=== PATIENT | female | born 1945 | race Caucasian/White ===

== ENCOUNTER 2020-10-27 17:09 | Inpatient (IN) | payer MEDICARE, BC ==
[2020-10-27] VITALS (52 sets, daily range): BP systolic 174; BP diastolic 87; PULSE 108; O2SAT 97–100
[~2020-10-27] VITALS: Ht 167.6 cm; Wt 93.4 kg
[2020-10-27 17:37] LABS: BASO # 0.1 (0.0-0.2); BASO % 0.7 % (0.0-2.0); EOS # 0.2 (0.0-0.7); EOS % 2.4 % (0-4.0); GRAN # 7.5 (1.4-6.5); GRAN % 73.9 % (42.2-75.2); HEMATOCRIT 44.3 % (37.0-47.0); HEMOGLOBIN 14.2 g/dl (12.5-16.0); LYMPH # 1.4 (1.2-3.4); LYMPH % 14.2 % (20.0-51.0); MEAN CELL VOLUME 96 fl (80.0-100.0); MEAN CORPUSCULAR HEMOGLOBIN 31 pg (27.0-31.0); MEAN CORPUSCULAR HGB CONC 32 g/dl (33.0-37.0); MEAN PLATELET VOLUME 9.3 fl (7.4-10.4); MONO # 0.8 (0.1-0.6); MONO % 8.2 % (1.7-9.3); PLATELET COUNT 387 K/mm3 (130-400); RED BLOOD COUNT 4.62 M/mm3 (4.10-5.30); REDCELL DISTRIBUTION WIDTH-CV 13.3 % (11.5-14.5)
[2020-10-27 17:43] LABS: ALANINE AMINOTRANSFERASE 14 U/L (4-34); ALBUMIN 4.1 gm/dL (3.5-5.0); ALKALINE PHOSPHATASE 149 U/L (50-136); ANION GAP 19 mmol/L (7-16); AST,SGOT 23 U/L (15-37); BILIRUBIN,TOTAL 0.5 mg/dL (0.0-1.0); BLOOD UREA NITROGEN 11 mg/dL (7-17); CALCIUM 8.8 mg/dL (8.4-10.2); CHLORIDE 102 mmol/L (98-107); CREATINE KINASE 79 U/L (30-135); GLUCOSE 353 mg/dL (74-106); POTASSIUM 3.9 mmol/L (3.4-5.0); SODIUM 133 mmol/L (137-145); TOTAL PROTEIN 7.5 gm/dL (6.4-8.2)
[2020-10-27 17:49] LABS: CARBON DIOXIDE 12 mmol/L (22-30)
[2020-10-27 17:57] LABS: TROPONIN-I < 0.012 ng/mL (0.000-0.035)
[2020-10-27 18:08] LABS: MUCOUS Present /lpf; PH 5 (5-8); SQUAMOUS EPITHELIAL 0-2 /hpf; URINE APPEARANCE Hazy; URINE BACTERIA None Seen /hpf; URINE BILIRUBIN Negative (NEGATIVE); URINE BLOOD 2+ (NEGATIVE); URINE COLOR Straw; URINE GLUCOSE 3+ (NEGATIVE); URINE KETONE 2+ (NEGATIVE); URINE LEUKOCYTE ESTERASE 1+ (NEGATIVE); URINE NITRATE Negative (NEGATIVE); URINE PROTEIN(semi-quant) 1+ (NEGATIVE); URINE UROBILINOGEN Negative (NEGATIVE)
[2020-10-27 18:35] LABS: INR 1.1 (0.8-3.0); PROTHROMBIN TIME 12.1 SECONDS (9.7-12.8)
--- NOTE | 2020-10-27 21:45 | NUR ---
Received report from DAV Heard in the Emergency Department.Awaiting patient arrival at this time.
--- NOTE | 2020-10-27 21:57 | NUR ---
Patient arrived to unit via wheelchair. Patient used bathroom upon arriving to unit. VS as followed, HR 103, RR 21, 100% on Room air, BP 173/96. No concerns or complaints noted at this time from patient. Patient transferred from toilet to bed via personal walker. Will resume care at this time and complete admission assessmet.
[2020-10-27] MEDS ORDERED: SYNTHROID0.2 MG/TAB PO (22:11)
[2020-10-27] MEDS ORDERED: LAMICTAL200 MG PO (22:11)
[2020-10-27] MEDS ORDERED: PRILOSEC 20MG20 MG PO (22:12)
[2020-10-27] MEDS ORDERED: CYMBALTA 60MG60 MG PO ×2 (22:12)
[2020-10-27] MEDS ORDERED: LIPITOR 10MG10 MG PO (22:13)
[2020-10-27] MEDS ORDERED: ATIVAN 0.50.5 MG/TAB PO (22:14)
[2020-10-27] MEDS ORDERED: AZO-CRANBERRY450 MG PO (22:15)
[2020-10-27] MEDS ORDERED: SYNTHROID0.175 MG PO (22:15)
[2020-10-27] MEDS ORDERED: ZOMIG ZMT PO (22:37)
--- NOTE | 2020-10-27 22:38 | NUR ---
cab supervisor notified that patient had 2 ziplocks bags of home medications that needed locked up. cab supervisor picked up home medications and locked in security. Patient refused to have other belongings locked up. Patient has a pair of shoes, pants, tshirts, $16 worth of bustos a coin purse, an iphone and a set of keys in a purse in her closet.
[2020-10-27 23:38] LABS: CALCIUM 8.5 mg/dL (8.4-10.2); CREATININE, serum 0.44 (0.52-1.25); MAGNESIUM 1.7 mg/dL (1.6-2.3); PHOSPHOROUS 2.9 mg/dL (2.5-4.5); POTASSIUM 3.6 mmol/L (3.4-5.0)
[2020-10-28] VITALS (655 sets, daily range): BP systolic 113–168; BP diastolic 59–99; PULSE 78–125; TEMP 97.6–97.7; O2SAT 90–100
[2020-10-28 00:08] LABS: TSH w REFLEX 23.3 uIU/mL (0.465-4.680)
--- NOTE | 2020-10-28 00:16 | NUR ---
Initiated patient on insulin gtt running at 5ml/hr or 5 units/hr. BG was 248 Prior to starting. Hospitalist stated to not give novolin 5 units and to just start on insulin gtt and D51/2NS at 250mls/hr and recheck BG Q1hr.
[2020-10-28 02:42] LABS: CALCIUM 8.5 mg/dL (8.4-10.2); CREATININE, serum 0.37 (0.52-1.25); POTASSIUM 3.3 mmol/L (3.4-5.0)
[2020-10-28 05:18] LABS: BASO # 0.1 (0.0-0.2); BASO % 0.5 % (0.0-2.0); EOS # 0.2 (0.0-0.7); EOS % 2.4 % (0-4.0); GRAN # 7.1 (1.4-6.5); GRAN % 74.4 % (42.2-75.2); HEMATOCRIT 40.1 % (37.0-47.0); LYMPH # 1.2 (1.2-3.4); LYMPH % 12.9 % (20.0-51.0); MEAN CELL VOLUME 94 fl (80.0-100.0); MEAN CORPUSCULAR HEMOGLOBIN 30 pg (27.0-31.0); MEAN CORPUSCULAR HGB CONC 32 g/dl (33.0-37.0); MEAN PLATELET VOLUME 9.2 fl (7.4-10.4); MONO # 0.9 (0.1-0.6); MONO % 9.4 % (1.7-9.3); PLATELET COUNT 363 K/mm3 (130-400); RED BLOOD COUNT 4.29 M/mm3 (4.10-5.30); REDCELL DISTRIBUTION WIDTH-CV 13.3 % (11.5-14.5)
[2020-10-28 05:30] LABS: CALCIUM 8.6 mg/dL (8.4-10.2); CREATININE, serum 0.36 (0.52-1.25)
[2020-10-28 08:02] LABS: COLLECTION METHOD CLEAN CATCH
[2020-10-28 10:40] LABS: CALCIUM 8.8 mg/dL (8.4-10.2); CREATININE, serum 0.38 (0.52-1.25); POTASSIUM 3.8 mmol/L (3.4-5.0)
--- NOTE | 2020-10-28 10:45 | NUR ---
First visit from the slider assembler. Patient was sleeping, slider assembler prayed for patient while standing outside their door.
[2020-10-28 16:20] LABS: CALCIUM 8.3 mg/dL (8.4-10.2); CREATININE, serum 0.33 (0.52-1.25); POTASSIUM 3.6 mmol/L (3.4-5.0)
--- NOTE | 2020-10-28 19:07 | NUR ---
REPORT GIVEN TO SEAN. CARE RELINQUISHED AT THIS TIME.
--- NOTE | 2020-10-28 19:32 | NUR ---
Received report from DAV Bejarano and DAV Mattson. All medications verified and all questions answered. Patient sitting up in bed finishing supper. VSS.. No concerns or complaints noted from patient at this time. Patient on Room air. Will resume care at this time.
--- NOTE | 2020-10-28 22:28 | NUR ---
BG prior to shutting insulin gtt off was 115. Insulin gtt shut off at 2100. Patient on [facility] mid sliding scale.
[2020-10-29] VITALS (283 sets, daily range): BP systolic 113–143; BP diastolic 48–90; PULSE 90–111; TEMP 97.5–98.6; O2SAT 90–100
[2020-10-29 06:12] LABS: BASO # 0.1 (0.0-0.2); BASO % 0.6 % (0.0-2.0); EOS # 0.3 (0.0-0.7); EOS % 2.9 % (0-4.0); GRAN # 6.3 (1.4-6.5); GRAN % 74.1 % (42.2-75.2); HEMATOCRIT 39.7 % (37.0-47.0); HEMOGLOBIN 13.4 g/dl (12.5-16.0); LYMPH # 1.1 (1.2-3.4); LYMPH % 12.5 % (20.0-51.0); MEAN CELL VOLUME 92 fl (80.0-100.0); MEAN CORPUSCULAR HEMOGLOBIN 31 pg (27.0-31.0); MEAN CORPUSCULAR HGB CONC 34 g/dl (33.0-37.0); MEAN PLATELET VOLUME 9.1 fl (7.4-10.4); MONO # 0.8 (0.1-0.6); MONO % 9.4 % (1.7-9.3); PLATELET COUNT 390 K/mm3 (130-400); RED BLOOD COUNT 4.31 M/mm3 (4.10-5.30); REDCELL DISTRIBUTION WIDTH-CV 13.3 % (11.5-14.5)
[2020-10-29 06:24] LABS: CALCIUM 8.9 mg/dL (8.4-10.2); CREATININE, serum 0.39 (0.52-1.25)
--- NOTE | 2020-10-29 12:00 | NUR ---
PT TRANFERED TO ROOM 312 AT THIS TIME VIA . KOREY GIVEN REPORT AND TOOK OVER PT CARE AT 1200.
--- NOTE | 2020-10-29 13:25 | NUR ---
Patient is currently on suicide precautions and will be seen by psychiatry this afternoon. CARYL made report to Adult Protective Services (intake #[id number]) based on information in Emergency Department notes that advise patient was found by EMS naked, covered in feces and urine. PT/OT saw patient and do not feel she would be safe to return home at this time. CARYL contacted patient's friend, Teetee Patino (ph#[phone]) who is listed as an emergency contact. Teetee reports that she is patient's neighbor and was the person that encouraged patient to contact emergency services. Teetee advised she and patient's other friend, Zaida Garcia (ph#[phone]) are patient's DPOA-HC. Teetee advised she is unable to fax or email a copy and is not sure when she will be in [place] to bring in a copy. Teetee thought that Dr. Balderrama's office should have a copy. Teetee advised that patient has a walker and wheelchair at home but does not use them. Teetee reports patient has not been as independent with ADLS and has been having accidents in her recliner. Teetee agrees with PT/OT evaluation that patient cannot return home at this time. Teetee advised that patient has two sons, Graham ([place], [place]) and Jason ([place]). Teetee reports that patient does not get along well with her sons. Teetee advised she will try to locate their phone numbers. CARYL contacted Dr. Balderrama's office and was advised that they do not have a copy, but will keep looking. CARYL contacted patient's friend, Zaida and left a message. CARYL will continue to follow. Discharge Plan: Pending recommendations from Psychiatry.
--- NOTE | 2020-10-29 18:42 | NUR ---
Patient transferred from the ICU. Placed on suicide precautions, room prepped accordingly. Upon initial assessment, normal S1 and S2 present, lungs were clear to ausculation, radial and pedal pulses were +2 bilaterally, bowel sounds present in all four quadrants. Patient is A&O. Patient denies any plans or thoughts of suicide at this time. She states that she is more frustrated than anything about the things going in her life. Psych consulted. Patient deemed a fall risk, precautions in place. Patient denies any pain, discomfort, or further needs at this time. Will continue to monitor. Call light within reach.
[2020-10-30] VITALS (17 sets, daily range): BP systolic 123–152; BP diastolic 49–90; PULSE 56–115; TEMP 98.1–98.9
--- NOTE | 2020-10-30 00:32 | NUR ---
ASSESSENT COMPLETE Q 15 MIN PER PROTOCOL. PT DENIES ANY SUIDICAL IDEATION. ROOM IS INSPECTED FOR [place]. PT EXPRESSES FEELING UPSET WITH HER LIFE BUT NO PLANS AT THIS TIME OF SELF HARM. DOES EXPRESS FEELING ANIXOUS. PRN ATIVAN GIVEN. PM MEDS AND INSULIN GIVEN. PT UP TO BR W NURSE ASST. POC DISCUSSED. V/U OF CARES.
--- NOTE | 2020-10-30 05:50 | NUR ---
RESTED THROUGH THE NIGHT WITHOUT INCIDENT. NO EXPRESSED THOUGHTS OF SELF HARM. MONITORED CLOSLY PER ORDER. NEEDS MET.
[2020-10-30 06:03] LABS: BASO % 0.4 % (0.0-2.0); EOS # 0.2 (0.0-0.7); EOS % 2.9 % (0-4.0); GRAN % 64.2 % (42.2-75.2); HEMATOCRIT 40.3 % (37.0-47.0); HEMOGLOBIN 13.5 g/dl (12.5-16.0); LYMPH # 1.8 (1.2-3.4); LYMPH % 22.5 % (20.0-51.0); MEAN CELL VOLUME 93 fl (80.0-100.0); MEAN CORPUSCULAR HEMOGLOBIN 31 pg (27.0-31.0); MEAN CORPUSCULAR HGB CONC 34 g/dl (33.0-37.0); MEAN PLATELET VOLUME 9.2 fl (7.4-10.4); MONO # 0.8 (0.1-0.6); MONO % 9.6 % (1.7-9.3); PLATELET COUNT 427 K/mm3 (130-400); RED BLOOD COUNT 4.34 M/mm3 (4.10-5.30); REDCELL DISTRIBUTION WIDTH-CV 13.5 % (11.5-14.5)
[2020-10-30 06:17] LABS: ALBUMIN 3.4 gm/dL (3.5-5.0); CALCIUM 8.8 mg/dL (8.4-10.2); CREATININE, serum 0.41 (0.52-1.25); PHOSPHOROUS 2.9 mg/dL (2.5-4.5); POTASSIUM 3.2 mmol/L (3.4-5.0)
--- NOTE | 2020-10-30 07:18 | NUR ---
Patient sleeping in bed at this time. No signs of pain, discomfort, or further needs at this time. Suicide precautions in place. Call light within reach. Fall precautions in place. Will continue to monitor.
--- NOTE | 2020-10-30 11:15 | NUR ---
Sleeping Bag Filler attended clinical rounds with the team. The team is recommending post acute rehab. Following rounds SW met with the patient to complete intake and to discuss post acute rehab. The [place] lives [address] [place] of [place]. The patient has a walker and reports independence with ADLs. The patient's PCP is Dr. Balderrama and receives medications from [facility] [facility]. The patient does not have advanced directives in the EMR but states they are complete and designate her friends, Teetee and Zaida. SW discussed Medicare.gov's list of post acute rehab. The first choice is [facility] and second choice [facility]. Referrals sent. *Discharge disposition: Post Acute Rehab. Referrals out to [facility] and [place] [facility]. Awaiting screens.
--- NOTE | 2020-10-30 16:15 | NUR ---
Assemblyman Or Woman contacted the patient's friend, Teetee to inquire about DPOA-HC paperwork. Teetee reports that she does not know how to send a copy electronically but gave a copy to the patient's friend Zaida to bring to this hospital. CARYL was contacted by APS worker Cyndi Marx, left message. CARYL attempted to return the call, this SW left message.
--- NOTE | 2020-10-30 19:18 | NUR ---
Psych consulted and determined that patient is a low risk for suicide. Patient taken off of suicide precautions. Fall precauions still in place. Patient did experience a fall today. PT witnessed. Patient did not hit their head. No injuries noted. VSS. MARIBELL Massey notified of incident. IV ancef DC'd, oral ordered. Patient denies any pain, discomfort, or futher needs at this time. Bedside report given to DAV Marsh.
--- NOTE | 2020-10-30 19:24 | NUR ---
Call light within reach.
[2020-10-31] VITALS (7 sets, daily range): BP systolic 105–147; BP diastolic 49–98; PULSE 51–112; TEMP 98.1–98.8
--- NOTE | 2020-10-31 04:46 | NUR ---
ANDREA DC, PT RESTED IN BED WITHOUT INCIDENT. NO PAIN REPORTED. NEURO INTACT. NO ATIVAN REQUIRED TONIGHT. NEEDS MET.
[2020-10-31 06:26] LABS: BASO % 0.5 % (0.0-2.0); EOS # 0.3 (0.0-0.7); EOS % 4.1 % (0-4.0); GRAN # 4.8 (1.4-6.5); GRAN % 61.3 % (42.2-75.2); HEMATOCRIT 42.9 % (37.0-47.0); HEMOGLOBIN 14.1 g/dl (12.5-16.0); LYMPH # 1.9 (1.2-3.4); MEAN CELL VOLUME 95 fl (80.0-100.0); MEAN CORPUSCULAR HEMOGLOBIN 31 pg (27.0-31.0); MEAN CORPUSCULAR HGB CONC 33 g/dl (33.0-37.0); MONO # 0.8 (0.1-0.6); MONO % 9.7 % (1.7-9.3); PLATELET COUNT 460 K/mm3 (130-400); RED BLOOD COUNT 4.52 M/mm3 (4.10-5.30); REDCELL DISTRIBUTION WIDTH-CV 13.6 % (11.5-14.5)
[2020-10-31 06:57] LABS: CALCIUM 8.9 mg/dL (8.4-10.2); CREATININE, serum 0.44 (0.52-1.25); POTASSIUM 3.8 mmol/L (3.4-5.0)
--- NOTE | 2020-10-31 09:06 | NUR ---
Cyndi Marx, APS worker for [facility] contacted this Return Agent regarding the patient. She states she will have a [facility] worker meet with the patient since the patient is hospitalized in [facility]. Cyndi states it is a process and may take a few days. CARYL contacted Ruthy with [facility] to follow up regarding referral, left message.
--- NOTE | 2020-10-31 17:08 | NUR ---
Laborer Gold Leaf followed up with both [facility] and [facility]. Both declined referral. SW met with patient about discharge plan. Patient stated she would not go to a nursing facility and declined to allow SW to send SNF referrals. Patient was interested in going home with home health, against recommendations. SW provided Medicare.gov list of HH agencies and patient selected [facility]. SW contacted April at [facility] and faxed referral. CARYL also updated APS worker, Silvia. CARYL then attempted to contact both of patient's DPOA-HC, Teetee and Zaida and left messages. SW will continue to follow. Discharge Plan: [facility] and [facility] declined. Patient declined SNF. Home with services, pending screen from [facility].
--- NOTE | 2020-10-31 19:03 | NUR ---
Patient alert and oriented, answers questions appropriately. See assessment. POC reviewed with patient, asks several questions regarding diabetes. No c/o at this time.
--- NOTE | 2020-10-31 22:11 | NUR ---
ASSESSEMNT COMPLETE. DENIES SOA, DIZZY OR LIGHTHEADED. HAD A MILD HEADACHE BUT DENIES NEED FOR MEDS. PM MEDS GIVEN . BLOOD SUGAR TREATED PER ORDERS. PT DENIES BEING A DIABETIC AND OFTEN WILL TALK ABOUT HER HISTORY. MANY LOSES IN HER LIFE. POC DISCUSSED.
[2020-11-01 04:05] VITALS: BP 124/60; PULSE 89; TEMP 98.7
--- NOTE | 2020-11-01 05:20 | NUR ---
RESTED THROUGH THE NIGHT WITHOUT INCIDENT. NEEDS MET.
--- NOTE | 2020-11-01 07:37 | NUR ---
Patient asleep in bed at this time. No signs of pain or discomfort. Will continue to monitor. Call light within reach. Fall precautions in place.
[2020-11-01 08:48] VITALS: BP 112/64; PULSE 96; TEMP 97.8
--- NOTE | 2020-11-01 10:45 | NUR ---
Scheduled meds give. Assessments performed. Patient taken to the bathroom and breakfast ordered. No insulin administer, BS 89. VSS. Potassium replacement given. Patient denies any pain, discomfort, or futher needs at this time. Will continue to monitor. Call light within reach. Fall precautions in place.
[2020-11-01 12:00] VITALS: BP 132/78; PULSE 113; TEMP 98.2
--- NOTE | 2020-11-01 14:33 | NUR ---
Rubber Boots And Shoes Repairer contacted the oncall RN at [facility] who advised they would likely accept patient upon discharge. CARYL collaborated with MARIBELL Zheng who advised when they saw patient this morning, she was agreeable to have additional referrals sent to area swing bed units. CARYL faxed referrals to [facility], [facility], [facility], and to [facility]. CARYL contacted patient's DPOA-HC Teetee to provide update. Discharge Plan: Awaiting screens from [facility], [facility], [facility], and [facility].
[2020-11-01 15:30] VITALS: BP 136/80; PULSE 110; TEMP 98.7
--- NOTE | 2020-11-01 16:49 | NUR ---
Nursing Informatics Specialist was contacted by Karlene at [facility] who advised she would have her director review referral however they could not take over the weekend at this time.
--- NOTE | 2020-11-01 17:43 | NUR ---
Patient given PRN ativan. Patient states that she is getting frustrated that that people here are treating her like a diabetic, she is not a diabetic her blood glucose is elevated due to her fight or flight response. Contacted MARIBELL Zheng to come visit with patient about diagnosis. Referrals sent out for placement of this patient in a rehab facility. Patient denies any pain, discomfort, or further needs at this time. Will continue to monitor. Call light within reach. Fall precautions in place.
[2020-11-01 19:13] VITALS: BP 135/64; PULSE 105; TEMP 98.8
--- NOTE | 2020-11-01 22:34 | NUR ---
ALERT AND OX3. ASSESSMENT COMPLETE. PT CONTINUE TO OBSESS ABOUT "NOT" BEING A DIABETIC. DENIES ANY SOA, DIZZY OR LIGHTHEADED. PM MEDS GIVEN. RECENT ATIVAN FOR ANIEXTY PER DAY SHIFT NURSE. UP X 1 ASST Dheeraj KABA. POC DISCUSSED. NEEDS MET.
[2020-11-01 23:36] VITALS: BP 133/82; PULSE 91; TEMP 98.7
[2020-11-02 04:35] VITALS: BP 134/88; PULSE 97; TEMP 98.7
--- NOTE | 2020-11-02 04:39 | NUR ---
RESTED THROUGH THE NIGHT WITHOUT INCIDENT. DID GIVE A DOSE OF ATIVAN TO HELP PT REST/ANIXOUS. NEEDS MET.
[2020-11-02 07:49] VITALS: BP 110/78; PULSE 98; TEMP 98.4
--- NOTE | 2020-11-02 08:17 | NUR ---
Pt assessment complete. Pt was assisted to the restroom first thing this morning, she did have some urge incontinence this am. Refusing to wear a brief. Denies any pain. No SOB. Assisted with ordering breakfast, no needs at this time. Fall precautions in place.
[2020-11-02 12:00] VITALS: BP 137/78; PULSE 107; TEMP 97.5
[2020-11-02 16:10] VITALS: BP 137/78; PULSE 101; TEMP 99
--- NOTE | 2020-11-02 19:10 | NUR ---
Pt rested in bed through the day, denied any pain. Continued to report she does not have diabetes, that these sugars are due to her "fight or flight" response. Pt up with SBA to restroom. No needs at this time. Fall precautions in place.
[2020-11-02 19:40] VITALS: BP 133/73; PULSE 91; TEMP 99
[2020-11-02 23:21] VITALS: BP 150/86; PULSE 92; TEMP 98.7
[2020-11-03 03:17] VITALS: BP 128/91; PULSE 97; TEMP 98.5
[2020-11-03 06:40] LABS: BASO % 0.6 % (0.0-2.0); EOS # 0.4 (0.0-0.7); EOS % 5.7 % (0-4.0); GRAN # 3.7 (1.4-6.5); GRAN % 57.1 % (42.2-75.2); HEMATOCRIT 39.5 % (37.0-47.0); HEMOGLOBIN 12.6 g/dl (12.5-16.0); LYMPH # 1.7 (1.2-3.4); LYMPH % 26.3 % (20.0-51.0); MEAN CELL VOLUME 97 fl (80.0-100.0); MEAN CORPUSCULAR HEMOGLOBIN 31 pg (27.0-31.0); MEAN CORPUSCULAR HGB CONC 32 g/dl (33.0-37.0); MONO # 0.6 (0.1-0.6); MONO % 9.7 % (1.7-9.3); PLATELET COUNT 520 K/mm3 (130-400); RED BLOOD COUNT 4.08 M/mm3 (4.10-5.30); REDCELL DISTRIBUTION WIDTH-CV 13.3 % (11.5-14.5)
[2020-11-03 06:58] LABS: CALCIUM 8.6 mg/dL (8.4-10.2); CREATININE, serum 0.5 (0.52-1.25); POTASSIUM 3.8 mmol/L (3.4-5.0)
[2020-11-03 07:26] VITALS: BP 141/87; PULSE 97; TEMP 98
--- NOTE | 2020-11-03 08:00 | NUR ---
Assessment completed, alert/oriented, vital signs stable, reporting headache/ requested Tylenol, no neuro deficits noted/ generalized weakness, heart RRR/distal pulses are palpable, lungs CTA/ no resp.difficulty, urinary incontinence is improving as we are treating her UTI, patient still does not beleive she is diabetic despite continued attempts at education/ she does not refuse the insulin injections but stated "I have been wrongly diagnosed with DM, it is just my flight or flight hormones causing my sugars to be high" , we are working on disharge planning for her and have multiple referrals out for swingbed and SNF facilities, patient denies other needs at this time and she is not sitting up eating her breakfast
[2020-11-03 12:38] VITALS: BP 134/77; PULSE 101; TEMP 98.2
[2020-11-03 16:22] VITALS: BP 182/84; PULSE 52; TEMP 98.3
[2020-11-03 16:24] VITALS: BP 156/94
--- NOTE | 2020-11-03 17:28 | NUR ---
Patient is upset that APS came in and was asking questions, she is upset that someone made a report about her and that APS would not tell her who it was, patient said she was going to call her warehouse manager and get out of this place, Psychiatry was also consulted to help determine patients capacitiy for decision making and appropriate self care
[2020-11-03 20:25] VITALS: BP 116/97; PULSE 106; TEMP 98.7
[2020-11-04 00:13] VITALS: BP 138/73; PULSE 96; TEMP 98.4
[2020-11-04 04:35] VITALS: BP 143/73; PULSE 96; TEMP 98.9
--- NOTE | 2020-11-04 07:10 | NUR ---
awake sitting up in bed, asking about when she is going home that she needs to go home today, assured her we would talk to Dr when he makes rounds, bedside shift report received from DAV Hendrickson
[2020-11-04 07:30] LABS: BASO % 0.5 % (0.0-2.0); EOS # 0.3 (0.0-0.7); EOS % 3.3 % (0-4.0); GRAN # 5.5 (1.4-6.5); GRAN % 66.9 % (42.2-75.2); HEMOGLOBIN 13.2 g/dl (12.5-16.0); LYMPH # 1.6 (1.2-3.4); LYMPH % 19.1 % (20.0-51.0); MEAN CELL VOLUME 98 fl (80.0-100.0); MEAN CORPUSCULAR HEMOGLOBIN 31 pg (27.0-31.0); MEAN CORPUSCULAR HGB CONC 31 g/dl (33.0-37.0); MEAN PLATELET VOLUME 9.1 fl (7.4-10.4); MONO # 0.8 (0.1-0.6); MONO % 9.8 % (1.7-9.3); PLATELET COUNT 550 K/mm3 (130-400); RED BLOOD COUNT 4.27 M/mm3 (4.10-5.30); REDCELL DISTRIBUTION WIDTH-CV 13.5 % (11.5-14.5)
[2020-11-04 07:33] LABS: CALCIUM 8.8 mg/dL (8.4-10.2); CREATININE, serum 0.52 (0.52-1.25); POTASSIUM 4.2 mmol/L (3.4-5.0)
[2020-11-04 08:09] VITALS: BP 108/56; PULSE 104; TEMP 98.1
--- NOTE | 2020-11-04 09:00 | NUR ---
sitting up in bed and has had breakfast, given am meds which she cook and was cooperative but does go into the fact she is not diabetic but it is only because of her fight of flight response, only listened to patient, she just shakes her head as I listen, full assessment completed, see interventions for further info
--- NOTE | 2020-11-04 10:50 | NUR ---
sitting up in bed talking on phone
[2020-11-04 12:01] VITALS: BP 148/102; PULSE 110; TEMP 98.1
--- NOTE | 2020-11-04 14:07 | NUR ---
[facility] has declined the patient. A consult for Dr. Alvarez, psychiatrist met with the patient on 11/03 to complete a evaluation for medical decision making capacity. Dr. Alvarez found the patient that she does not have the capacity to make decisions for her short-term placement of health matters. CARYL contacted the patient's DPOA-HC Teetee to discuss the above matter. She prefers the patient be placed someplace where she can receives mental health help and she would like to talk to the patient's sons regarding the above information. She inquired if the patient could be sent someplace like [facility] in [place]. SW to discuss case with supervisor malted milk. This SW was contacted by the patient's sons, Graham and Jason via two way call. Per son Graham the patient is "very mentally unwell" and "cannot take care of herself physically." Graham states, if the patient would take her medications and take care of herself she would live an ok life. Graham confirms that the patient states she does not have diabetes, it is just stress. Graham would like her mental health treated first. Per son Jason he got a phone call from the past PCP, Regine Martinez that the patient drove to the doctor's office with a glucose of 400. They are concerned for the patient's safety as well as people who are driving while the patient is driving. Both son confirm that that patient switches PCPs when the patient does not hear (regarding diagnosis) what she wants from the physician. The patient has a community case manager at [facility]. Vidhya Garcia with [facility] sent Elizabeth Valenzuela, Director of Case Management a release of information for the patient to complete. CARYL met with the patient to complete a release of information for [facility]. The patient signed the release. CARYL sent the release to Vidhya. Vidhya contacted this CARYL and reports the patient contacted [facility] to rescinded the release of information. CARYL discussed with Vidhya Alvarez's determination regarding capacity. Vidhya requested DP- and Dr. Alvarez progress note and will discuss the case with her risk assessment consultant regarding the release of information. CARYL collaborated the above information with the team.
--- NOTE | 2020-11-04 14:47 | NUR ---
entered room and administered heparin, she states she has talked with her peanut sorter Alessandro Simms and he has told her if she wants to go home she has the right to leave, she says her neighbors are on the way to pick her up, MARIBELL Massey and Elvia, social work lecturer notified
--- NOTE | 2020-11-04 15:21 | NUR ---
continues to insist she is going home, her DPOA called the addiction social worker Elizabeth to inform her she talked with the patient and this is what the patient told her, she is currently lying in bed with gown covering her
--- NOTE | 2020-11-04 15:35 | NUR ---
washtub worker helper spoke with Vidhya Nice with [facility] and confirmed that patient will need to have a psychiatric screen for placement involuntary vs voluntary.
--- NOTE | 2020-11-04 15:43 | NUR ---
Medical Affairs Leader staffed with Elizabeth, Chemistry Intern regarding safest discharge disposition. A psych screen needs to be done for placement from [facility]. CARYL staffed with Hospitalist and PA regarding the above information and they are in agreeance. CARYL contacted the patient's DPOA-HC, Teetee and provided the above information. Teetee was in agreeance. CARYL contacted [facility] and ask for Luis. He was not available. Darci requested clinical informaiton be faxed to [facility]. CARYL faxed referral.
[2020-11-04 16:00] VITALS: BP 151/83; PULSE 102; TEMP 98.3
--- NOTE | 2020-11-04 16:23 | NUR ---
resting in bed looking at her phone
--- NOTE | 2020-11-04 17:19 | NUR ---
Aassisted up to bathroom with 1 assit, continues to be angry and state she shouldn't be here
--- NOTE | 2020-11-04 18:48 | NUR ---
Eloy de oliveira remains in room, shift report given to DAV Gamble
[2020-11-04 20:14] VITALS: BP 174/109; PULSE 106; TEMP 98.3
[2020-11-05 00:10] VITALS: BP 127/79; PULSE 98; TEMP 97.8
[2020-11-05 04:00] VITALS: BP 157/89; PULSE 100; TEMP 98.4
--- NOTE | 2020-11-05 04:23 | NUR ---
CINDI FROM [facility] IN [place], [place] CALLED REQUESTING INFORMATION ABOUT JE[facility]. INFORMATION PROVIDED AND HE INFORMED ME SHE WOULD NEED A NEGATIVE COVID PCR OR PROOF THAT SHE HAS BEEN VACCINATED. CINDI'S PHONE NUMBER IS [phone]
--- NOTE | 2020-11-05 06:24 | NUR ---
PATIENT CALM AND COOPERATIVE THROUGHOUT THE SHIFT. NO NEW ISSUES NOTED OR REPORTED BY PATIENT.
[2020-11-05 07:51] VITALS: BP 174/96; PULSE 107; TEMP 98.1
--- NOTE | 2020-11-05 11:11 | NUR ---
Assessment completed, patient is alert/oriented to person /place and time, she is still very paranoid and refusing to accept her Medical diagnosis, Psych screen/ eval have documented that patient currently does not have capactity to make safe/ sound decisions for her self and that her DPOA is now in effect, recommendations for inpatient psych treatment, patient is very upset with her plan of care at this time, bed alarm is set as patient is a fall risk, call light in reach, will continue to monitor closely
[2020-11-05 11:46] VITALS: BP 178/105; PULSE 114; TEMP 98.3
--- NOTE | 2020-11-05 12:00 | NUR ---
Patient insisting on leaving and got herself dressed and came out to the nursing station, I notified Hospitalist who came out and spoke to the patient, we explained that she has been placed on a psychiatric hold an will be involuntarily admitted to an inpatient psych treatment facility and that if she leaves the building we will be forced to call the authorities and have them bring her right back to the hospital, her DPOA Teetee has been in close contact and is consenting for the patient to be involuntarily admitted to a psych treatment facility, patient continued to head for the door and I notifeid house manager as well as security to help manage the situation
--- NOTE | 2020-11-05 13:45 | NUR ---
Patient to ICU4 from medical unit. Patient agitated & combative per powerhouse laborer prior to arrival. Patient left the building due to not be able to be re-directed. Security, powerhouse laborer & [employer] x3 returned patient to building when she was brought to ICU. Patient assisted into bradford gown & belongings removed from her possession.
--- NOTE | 2020-11-05 15:07 | NUR ---
clay processing factory worker was present with patient, outside the front of the hospital, with hospital security, house superviser, and [facility] police officers. Patient is a 3rd floor patient that we are collaborating with [facility] to be placed in a micheal-psych inpatient facility. Dr Alvarez has declared that patient does not have the capacity to make her own decisions and Dr Powers signed an Involuntary Hold document. Patient states she wants to leave the hospital and is not cooperative with staff to get into wheelchair and be taken back into the hospital. After several unsuccessful attempts by the hospital staff, including Police response advocate, to have patient cooperate and be taken in the wheelchair back into the hospital, [facility] police officers physically placed patient in the wheelchair. After being placed in the wheelchair, patient was cooperative will transfer to ICU room. See further notes from Elvia Clay regarding acceptance and transfer plans to [facility]. Worker collaborated with ICU nurses regarding the above information.
--- NOTE | 2020-11-05 15:08 | NUR ---
Patient continues to rest quietly in bed since arrival to ICU. Bed alarm. No needs voiced at this time.
[2020-11-05] MEDS ORDERED: NOVLOG SQ (15:19)
[2020-11-05] MEDS ORDERED: PROZAC 20MG20 MG PO (15:19)
[2020-11-05] MEDS ORDERED: LEVEMIR100 U/ML SQ ×2 (15:19→15:31)
[2020-11-05] MEDS ORDERED: DESENEX TP (15:20)
[2020-11-05] MEDS ORDERED: NOVOLOG 100U100 U/M1 SQ (15:33)
--- NOTE | 2020-11-05 15:33 | NUR ---
Patient is now in room ICU 4, I have called and given report to DAV Wheeler
--- NOTE | 2020-11-05 16:12 | NUR ---
PATIENT HAS BEEN ACCEPTED TO [facility] IN [place]. NURSE TO NURSE REPORT WILL BE CALLED TO [phone]. PT WILL GO TO ROOM 107. AWAITING INFORMATION FROM [facility] ON WHEN THEY WILL BE ABLE TO TRANSPORT THE PATIENT.
--- NOTE | 2020-11-05 16:21 | NUR ---
[facility] screened the patient and found that the patient needed a stay at a psychiatric facility. Referrals were sent by [facility] staff. [facility] in [place] accepted the patient. Hannah with [facility] requested covid test. A respirtory panel done and faxed to [facility]. The patient negative for Covid-19. Hannah requested information regarding the patient and if she had received Covid-19 vaccine. The health department and the patient's PCP were contacted and there was no evidence of a Covid-19 vaccine administered. CARYL collaborated the above information with Hannah. The patient to tentatively discharge today, 11/05 to [facility] in [place], room 107. The receiving physician is Dr. Blanc. [facility] transport will sheepskin pickler the patient at approximately 6:00 PM. CARYL contacted the patient's DPOA-HC, Teetee to review the above plan. She was in agreeance. CARYL presented the IM form to Teetee. She verbalized understanding and gave this CARYL to sign on her behalf. Original placed in the chart. The team in agreeance with the above plan. CARYL contacted [facility]oy QUEVEDO, APS Worker Cyndi Marx to update the the above plan. CARYL faxed discharge orders and respiratory panel for Covid-19. There are no additional needs at this time.
--- NOTE | 2020-11-05 17:59 | NUR ---
REPORT CALLED TO NURSE AT [facility] IN [place]
--- NOTE | 2020-11-05 18:28 | NUR ---
PATIENT LEAVES WITH [employer]. HER BELONGINGS ALONG WITH HOME MEDICATIONS ARE SENT WITH THEM.
--- NOTE | 2020-11-06 11:44 | NUR ---
On 11/04 at approximately 1300 was called to the medical floor to assist with a situation that could progress. This patient was being held on an involuntary hold by psychiatry. She was attempting to leave the floor and facility. She had a friend that had come to pick her up. As the friend was speaking with Dr. Powers the patient was attempting to leave the floor. This nurse attempted to stop the patient by stepping in front of her walker (in which the patient stomped on this nurses foot) and reasoning with her. When it was determined that there would be no reasoning with patient (call was placed to the patients nurse and security). This nurse walked along with patient. We stopped at the 3rd floor lobby and again I tried to reason with the patient. She did not want to hear of such information and placed a call to who she stated was her human service coordinator. She left a message. She then saw someone get onto the elevator. She followed suit and we also got onto the elevator. Upon getting off the elevator she noted there was a sign on the front door that this was not an exit. We went into the [employer] shop where she asked for assistance in finding the front door. The volunteer in the gift shop gave her directions to the front door. The patient headed that direction; I again tried to talk with patient. She would not acknowledge that I was there. She found a sign that said "[facility]" The patient made her way into the chaplins office. Octavio Mohr was in the office; she shut the door to the office and did not want me to come in. I went to the hallway to wait for patient to leave. I was joined by Program Support Clerk, Gino and patients nurse, DAV Ambrosio who brought a w/c. When they finally were able to get patient from the chaplian office we offered her a chair in which she would not take. She proceeded to the front entrance. When to admissions desk the patient stopped to ask if the MACHINERY MECHANIC could be called. The patient realized the person behind the desk was following my lead and the patients stated "oh never mind your looking at her" and proceeded out the door. The patient was encouraged to turn around again but refused. Patient's nurse then arrived and with encouragement was able to remove both INT's from the patients left arm. Patient was then escorted by myself and security. Security placed a call to [facility] as the patient was on an involuntary hold and we needed asssitance getting the patient back into the hospital. The patient ambulated on her own to the front door where there was a bench and sat down. I tried to discuss with the patient the doctors orders and that she needed to return to the hospital. By that time the patient would only say to this nurse that she came in on her own free will and she was legally to leave on her own free will. I again attempted to explain that the doctor that came yesterday did not feel she (the patient) could make safe decisions for herself. Three [facility] officers and Elizabeth Valenzuela, Outboard Motor Tester showed up to assist with patient. They were udated on the current situation. A involuntary hold paper was provided; signed by the doctor. Explaination given by [facility] to patient but she continued to refuse. Patient recieved a call (that she said was her human service coordinator). She talked with him for approx 20 minutes; when the Crisis Counsler from [facility] arrived. She did not engage with her either. We left her speak with her human service coordinator another 10 minutes and this nurse intervened; I told the patient that it was now time to go back into the hospital as the officers had to get back to work. I explained to her she could get into the wheel chair by herself or that they would assist her into the chair. She ignored this nurse and continued to talk on the phone. The officers then stated they would take over from here. Giving the patient a little more time and then telling her again it was time to go inside; loud enough it could be heard by the person on the phone. Two officers then assisted her to the chair. She screamed out for help and was throwing her arms around. Her phone was taken as worried she would drop it in the scuffle and her walker was removed by . She was then escorted by w/c into the hospital by this nurse, , and Elizabeth Valenzuela and taken to ICU 4. We were met by patients nurse, DAV Wheeler; assisted into a gown and to bed. She did not fight but was verbally upset. The patient also agreed to a nasel swab for covid but was upset and stated "I guess I have no choice" The patient's belongings were locked up and the patient was left in the care of DAV Wheeler of the ICU. Social workers were making arrangement for placement.
== END 2020-11-05 18:29 | DRG 637 ==
LOC: COL.ER 17:09 → ICU 20:08 → MEDICAL 20:08 → ICU 11-05 13:30
PROVIDERS: Hospitalist; Physician Assistant; Student in an Organized Health Care Education/Training Program; ADMIT Emergency Medicine
DX: E11.10 Type 2 diabetes mellitus with ketoacidosis without coma (principal); G93.41 Metabolic encephalopathy; N39.0 Urinary tract infection, site not specified; R45.851 Suicidal ideations; I10 Essential (primary) hypertension; E87.6 Hypokalemia; B96.1 Klebsiella pneumoniae [K. pneumoniae] as the cause of diseases classified elsewhere; F41.1 Generalized anxiety disorder; F31.9 Bipolar disorder, unspecified; F43.10 Post-traumatic stress disorder, unspecified; E03.9 Hypothyroidism, unspecified; R62.7 Adult failure to thrive; R32 Unspecified urinary incontinence; R33.9 Retention of urine, unspecified
CPT/HCPCS: 99223-AI; 99231-AI; 99232-AI; 99233-AI; 99239; J0690; J0696; J1644; J1815; J2060; J3480; J7030